=== PATIENT | female | born 1985 | race Caucasian/White ===

== ENCOUNTER 2016-12-18 23:57 | Emergency (ER) | payer MEDICAID ==
[2015-06-08 08:17] VITALS: BMI 29.1
[~2016-12-18 23:57] MED LIST: AMOXICILLIN500 M1 PO; AMOXIL250 M1 PO; IBUPROFEN600 MG PO; PERCOCET 5-3251 TAB PO; PRENATAL COMPLE1 TAB PO; VITAMIN B-1000 MCG/M IM; ZANTAC150 MG
[2016-12-19 11:36] LABS: AMYLASE - SERUM 55 U/L (25-115); GLUCOSE 117 mg/dL (74-106); LIPASE 106 U/L (73-393)
[2016-12-19 11:37] LABS: ALBUMIN 4.2 g/dL (3.4-5.0); ALKALINE PHOSPHATASE 25 U/L (46-116); ALT (SGPT) 21 U/L (10-68); BILIRUBIN - TOTAL 0.44 mg/dL (0.2-1.3); CALC OSMOLALITY 268 mosm/kg (275-300); CALCIUM 9.3 mg/dL (8.5-10.1); CARBON DIOXIDE 28.4 mmol/L (21.0-32.0); CHLORIDE - SERUM 99 mmol/L (98-107); CREATININE - SERUM 0.8 mg/dL (0.6-1.3); POTASSIUM - SERUM 3.8 mmol/L (3.5-5.1); SODIUM 135 mmol/L (136-145); UREA NITROGEN 8 mg/dL (7-18); eGFR NON AFRICAN AMERICAN 90 mL/min (90-120)
[2016-12-19 11:38] LABS: HEMATOCRIT 40.2 % (36.0-48.0); HEMOGLOBIN 13.6 g/dL (12-16); MCH 32.8 pg (26.0-34.0); MCHC 33.8 g/dL (31.0-37.0); MCV 96.9 fL (80.0-100.0); MEAN PLATELET VOLUME 12.1 fL (7.4-10.4); PLATELET COUNT 214 10x3/uL (130-400); RBC 4.15 10x6/uL (4.00-5.40); RDW 12.1 % (11.5-14.5); WBC 6.7 10x3/uL (4.8-10.8)
[2016-12-19 11:39] LABS: BASOPHILS 0.3 % (0.0-2.0); EOSINOPHILS 0.7 % (0-7); LYMPHOCYTES 10.8 % (15-50); MONOCYTES 5.2 % (2-11)
[2016-12-19 11:40] LABS: APPEARANCE HAZY (CLEAR); BILIRUBIN NEGATIVE (NEGATIVE); COLOR YELLOW (YELLOW); GLUCOSE NEGATIVE (NEGATIVE); HCG SERUM NEGATIVE (NEGATIVE); KETONE SMALL mg/dL (NEGATIVE); LEUKOCYTE ESTERASE TRACE (NEGATIVE); NITRITE NEGATIVE (NEGATIVE); PROTEIN NEGATIVE (NEGATIVE); SPECIFIC GRAVITY 1.015 (1.005-1.020); UROBILINOGEN NORMAL (NORMAL)
== END 2016-12-19 05:23 | disposition home or self-care (01) ==
LOC: D.ER 23:57
PROVIDERS: Family Medicine
DX: R10.13 Epigastric pain (principal)

== ENCOUNTER 2020-12-30 14:11 | Emergency (ER) | payer MEDICAID ==
[~2020-12-30] VITALS: Ht 157.5 cm; Wt 62.7 kg
[2020-12-30 14:15] VITALS: BP 137/107; Ht 157.5 cm; Wt 62.7 kg
[2020-12-30] MEDS ORDERED: XANAX0.5 MG PO (14:16)
[2020-12-30] MEDS ORDERED: MOBIC7.5 MG PO (14:51)
[2020-12-30] MEDS ORDERED: METHOCARBAMOL500 MG PO (14:51)
== END 2020-12-30 14:59 | disposition home or self-care (01) ==
LOC: D.ER 14:11
DX: M79.602 Pain in left arm (principal); R07.89 Other chest pain; R20.0 Anesthesia of skin